=== PATIENT | female | born 1940 | race Caucasian/White ===

== ENCOUNTER 2018-04-30 14:58 | Emergency (ER) | payer MEDICARE, OTHER ==
--- NOTE | 2018-04-30 15:32 | EDM.PDOC ---
ED HPI GENERAL MEDICAL PROBLEM - General Chief Complaint: Eye Problems Stated Complaint: R EYE PROBLEMS Time Seen by Provider: 04/30/18 15:31 Source of Information: Reports: Patient History Limitations: Reports: No Limitations - History of Present Illness INITIAL COMMENTS - FREE TEXT/NARRATIVE: 78-year-old female presents to the ED for evaluation of ptosis of her right upper eyelid that was appreciated within the last couple of days. She states she awoke with this problem about 2 and half days ago. She feels overall that the ptosis is getting better versus worsening. She has not developed any visual acuity problems such as double vision. No blurred vision in the right eye. No associated problems with her mouth function in terms of swallowing or drooling. No trouble swallowing. No recent falls or closed head injuries. She does not take any blood thinners. She is not in atrial fibrillation. Her did a new blood pressure medication because her lisinopril was causing her to have a chronic cough about a month ago. Rarely traveling from [facility] to [place]. Onset: Gradual Onset Date: 04/27/18 Duration: Day(s): Location: Reports: Face (Ptosis of her right upper eyelid.) Quality: Reports: Other (No pain or discomfort) Improves with: Reports: Other (Seems to be getting better on its own.) Worsens with: Reports: None Context: Reports: Other. 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 (see below) - Related Data Allergies Allergy/AdvReac Type Severity Reaction Status Date / Time No Known Allergies Allergy Verified 04/30/18 15:07 Home Meds: Home Meds Aspirin 81 mg PO DAILY 04/30/18 [History] Bp Pill 1 tab PO DAILY 04/30/18 [History] Cranberry 2 tab PO DAILY 04/30/18 [History] Fish Oil/Marble-3 Fatty Acids [Fish Oil 1,000 MG] 1 each PO DAILY 04/30/18 [ History] Multivitamin [Multivitamins] 1 each PO DAILY 04/30/18 [History] atorvaSTATin Calcium [Atorvastatin Calcium] 20 mg PO DAILY 04/30/18 [History] Past Medical History HEENT History: Reports: Impaired Vision Cardiovascular History: Reports: High Cholesterol, Hypertension - Past Surgical History Female Surgical History: Reports: Hysterectomy Musculoskeletal Surgical History: Reports: Other (See Below) Other Musculoskeletal Surgeries/Procedures:: rotator cuff surgery bilateral Social & Family History - Family History Family Medical History: Noncontributory - Tobacco Use Smoking Status *Q: Never Smoker - Caffeine Use Caffeine Use: Reports: Coffee - Recreational Drug Use Recreational Drug Use: No - Living Situation & Occupation Occupation: Retired ED ROS GENERAL - Review of Systems Review Of Systems: See Below Constitutional: Denies: Fever, Chills, Malaise, Weakness, Fatigue, Decreased Appetite, Weight Loss HEENT: Reports: Ear Pain (Intermittent right ear pain.), Other (Previous cataract extractions and intraocular lens placement.). Denies: Contact Lenses, Vertigo, Vision Change Respiratory: Reports: No Symptoms Cardiovascular: Reports: Blood Pressure Problem (Does have high blood pressure well controlled on current medication) Endocrine: Reports: No Symptoms GI/Abdominal: Reports: No Symptoms : Reports: No Symptoms Musculoskeletal: Reports: No Symptoms Skin: Reports: No Symptoms Neurological: Reports: No Symptoms Psychiatric: Reports: No Symptoms Hematologic/Lymphatic: Reports: No Symptoms Immunologic: Reports: No Symptoms ED EXAM GENERAL W FULL EYE - Physical Exam Exam: See Below Exam Limited By: No Limitations General Appearance: Alert, WD/WN, No Apparent Distress, Other (Does have ptosis of her right upper eyelid mild.) Eye Exam: Right Eye: Normal Fundi (Normal NECK EXAM.), Bilateral Eye: Periorbital Changes (Ptosis mild right upper eyelid.), PERRL (No evidence of third nerve palsy.) Eyelids: Right: Other (Mild ptosis right upper eyelid is compared to the left.) Conjunctiva & Sclera: Bilateral: Normal Appearance Cornea Exam: Bilateral: Normal Appearance Extraocular Movements: Bilateral: Intact Pupils: Normal Accommodation Pupillary Size: Bilateral: 5 mm Pupillary Reaction: Bilateral: Brisk Anterior Chamber: Right: Normal Appearance Posterior Chamber: Right: Normal Funduscopic Ears: Normal TMs Throat/Mouth: Normal Inspection, Normal Lips, Normal Teeth, Normal Oropharynx, Other (Uvula is in the midline.) Head: Atraumatic, Normocephalic Neck: Normal Inspection, Supple, Non-Tender, Full Range of Motion. No: Lymphadenopathy (L), Lymphadenopathy (R) Respiratory/Chest: No Respiratory Distress, Lungs Clear, Normal Breath Sounds, No Accessory Muscle Use Cardiovascular: Normal Peripheral Pulses, Regular Rate, Rhythm, No Edema, No Gallop, No JVD, No Murmur, Other (No carotid bruit) Extremities: Normal Inspection, Normal Range of Motion, Non-Tender, No Pedal Edema Neurological: Alert, Oriented, CN II-XII Intact, Normal Cognition, Normal Gait, No Motor/Sensory Deficits, Other (Normal rapid alternating movements. Normal finger to nose assessment. No pronator drift.) Psychiatric: Normal Affect Skin Exam: Warm, Dry, Intact, Normal Color, No Rash Course - Vital Signs Last Recorded V/S: Last Vital Signs Temp 36.8 C 04/30/18 15:00 Pulse 85 04/30/18 15:00 Resp 18 04/30/18 15:00 BP 153/81 H 04/30/18 15:00 Pulse Ox 97 04/30/18 15:00 - Radiology Interpretation Free Text/Narrative:: 78-year-old female presents to the ED at the request of the walk-in clinic across the street. Patient is traveling with a friend from [facility] to [facility]. About 2 and half days ago they appreciated that her right upper eyelid seemed to be drooping. Emanation it is drooping mildly. Patient states over the last day or so it seems to be getting somewhat better. There is no visual acuity changes. She denies any headaches. Denies any problems with her mouth function or trouble swallowing. No recent falls or closed head injuries. She states otherwise she feels fine. She has no other signs or symptoms that would suggest myasthenia gravis. She has no other signs that would suggest developing Durant's palsy. Neuro exam is completely normal with no double vision and no evidence of third nerve palsy. Therefore the ptosis is essentially unexplained at this time and may be viral in origin. Advised her to adopt a wait and see approach and see how things go over the next 7-10 days. If the ptosis is worsening or not improving then imaging of her brain is probably warranted. She is to seek medical help sooner if she develops any trouble with double vision trouble swallowing or severe headache. Departure - Departure Time of Disposition: 15:47 Disposition: Home, Self-Care 01 Condition: Fair Clinical Impression: Ptosis of eyelid Qualifiers: Laterality: right Qualified Code(s): H02.401 - Unspecified ptosis of right eyelid - Discharge Information *PRESCRIPTION DRUG MONITORING PROGRAM REVIEWED*: Not Applicable *COPY OF PRESCRIPTION DRUG MONITORING REPORT IN PATIENT [place]: Not Applicable Referrals: PCP,Not In Area [Primary Care Provider] - Forms: ED Department Discharge Additional Instructions: Evaluation the emergency room today at the request of the walk-in clinic across the street. He presented to the clinic because of noted drooping of her right upper eyelid for the last 2 days. Occurred spontaneously and it has not interfered with her vision. You have no other signs or symptoms of neurological disease. There is no doubt on examination that you have some mild ptosis or drooping of your right upper eyelid. Over the rest of the muscles that control on movement and also the eyelid movements are normal at this time. There is no sign of Durant's palsy. No signs or symptoms of myasthenia gravis at this time. You're neurological examination was normal in the emergency room and I did not see a emergent need to image her brain at this time. I would adopt a wait and see approach and see if things improve over the next 7-10 days if they do not then imaging of your brain is required. Certainly follow-up if the drooping worsens or you develop any double vision or further weakness of the muscles around her mouth occurs.
== END 2018-04-30 16:00 | disposition home or self-care (01) ==
LOC: JD.ED 14:58
DX: H02.401 Unspecified ptosis of right eyelid (principal); Z79.82 Long term (current) use of aspirin
CPT/HCPCS: 99283